=== PATIENT | male | born 1970 | race Caucasian/White ===

== ENCOUNTER 2023-11-26 05:24 | Emergency (ER) | payer OTHER, SELFPAY ==
[2023-11-26 05:28] VITALS: BP 95/55
[2023-11-26 06:31] VITALS: BP 110/68; BMI 36.2
--- NOTE | 2023-11-26 06:33 | EDRN ---
Pt says he has been getting charley horses in his legs x 4 weeks. He got back from [place] 11/15 and his stomach 'hasn't been right since.' Pt has had nausea. Pt notes increased soft bowel movements daily - no diarrhea. Pt woke with a charley horse
and says he 'stretched it out' then developed 'bubbles in the back of my head and I got dizzy.' Pt says he has never had this sensation in his head. Dizziness lasted about 5-10 minutes and has improved 'a lot.' Pt still feels discomfort posterior
head. Pt does not know if lights bother his eyes. Pt denies fever/chills/cough, cp, sob, abd pain, urinary symptoms, vomiting, diarrhea/constipation.
[2023-11-26 07:04] VITALS: BP 109/63
--- NOTE | 2023-11-26 07:23 | ED.GENMED ---
History of Present Illness
General
Chief Complaint: Musculo-Skeletal Complaint
Source: patient
Exam Limitations: none
Time Seen by Provider: 11/26/23 07:09
Nursing documentation reviewed up to this point in time: agreed with
Travel History
Have you had any contact with someone who has COVID-19?: No
Do you have any symptoms of coronavirus? Fever > 100 degrees, chills, cough, shortness of breath, sore throat, loss of taste or smell, muscle aches, or headache?: No
History of Present Illness
History of Present Illness:
53-year-old male presents to the ER for evaluation. Patient reports he has had intermittent 'Ryan horses' for the past 4 weeks now and woke up because of a' charley horse' in his right leg around 5:20 AM. He reports he jumped up and when he
straightened out his toes of his right leg he felt a sudden rushing sensation and weird sensation in the back of his head and felt very dizzy . He reports the dizziness lasted for about 5 to 10 minutes. He had no associated headache. He did not
feel like he was going to pass out he just felt dizzy. He was able to drive himself here to the ER. Currently he has no symptoms of head pain or dizziness. Pt reports he has been up very early every morning for the past several days because of his
job and has very sleep deprived.
He is not on blood thinners. He denied any visual changes associate with this. Denies any nausea vomiting. He reports he was in [place] 10 days ago and since then has had frequent bowel movements every day but not diarrhea. He has not documented
medical history but does not go to his family doctor routinely. There is no family history of DVT blood clots CVAs.
Past History
Past History
ED Past Medical History: Other (renal calc)
ED Past Surgical History: Appendectomy and Orthopedic (Left hand surgery)
Social History
Tobacco: Smoker (Occasional cigar)
Alcohol: None
Personal: Single
Living: with family
Employment: Employed
Review of Systems
Review of Systems
Allergies reviewed?: Yes
All Other Systems: ROS reviewed and negative except as documented in HPI and ROS
Constitutional: Reports no symptoms
EENT: Reports no symptoms
Respiratory: Reports no symptoms
Cardiac: Reports no symptoms
ABD/GI: Reports no symptoms
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
Skin: Reports no symptoms
Neurological: Reports other ('weird sensation to back of head ' prior to arrival associated with dizziness, quick episode of confusion ); Denies headache
Endocrine: Reports no symptoms
Hematologic/Lymphatic: Reports no symptoms
Psychiatric: Reports no symptoms
Phy Exam
General Physical Exam
General Presentation: no apparent distress
General age: appears stated age
General Skin: warm and dry
General Habitus: normal
General Mental: alert
General Hydration: appears well hydrated
Neurological Exam
Neurological Exam: alert, oriented x3, no motor deficits and no sensory deficits
[place] Coma Scale
Eye Opening: Spontaneous
Verbal Response: Oriented
Motor Response: Obeys Commands
GCS Total Score: 15
Cerebellar
Cerebellar Function: normal finger to nose
Musculoskeletal Exam
Musculoskeletal Exam: full ROM
Skin Exam
Skin Exam: normal color and warm/dry
Psychiatric Exam
Psychiatric Exam: normal mood/affect
Course
Orders/Labs/Results
Orders:
Orders
11/26/23 07:27
IV Insert/Care/Rem.- Treatment PRN
0.9% Sodium Chloride 1000 ml [Nss] 1,000 ml IV BOLUS
11/26/23 07:30
Venous Doppler Lwr Ext Rt [US Periph Venous LOWER Ext RT] Urgent
Comment:
Reason For Exam: pain
11/26/23 07:31
CPK [Creatine Phosphokinase] Urgent
Complete Blood Count/With Diff Urgent
Comprehensive Metabolic Panel Urgent
Abnormal Lab Results
11/26/23
07:31
WBC 12.9 H 10^3/uL
(4.8-10.8)
Abs Immat Gran (auto) 0.1 H 10^3/uL
(0-0.05)
Absolute Neuts (auto) 10.3 H 10^3/uL
(1.4-6.5)
Absolute Monos (auto) 1.0 H 10^3/uL
(0.1-0.6)
Neutrophils % 80.2 H %
(42.2-75.2)
Lymphocytes % 10.8 L %
(20.5-51.1)
Glucose 116 H mg/dl
(70-99)
Creatine Kinase 219 H U/L
(55-170)
11/26/23 07:31
11/26/23 07:31
Vital Signs
Initial and Last Documented VS:
Initial Vital Signs
Temp Pulse Resp BP Pulse Ox
98.2 F 60 16 95/55 92
11/26/23 05:28 11/26/23 05:28 11/26/23 05:28 11/26/23 05:28 11/26/23 05:28
Last Documented Vital Signs
Temp Pulse Resp BP Pulse Ox
98.2 F 65 13 125/69 92
11/26/23 05:28 11/26/23 10:00 11/26/23 09:00 11/26/23 10:00 11/26/23 10:00
Director Writing consulted with Physician
Director Writing consulted with physician?: Yes
Name of Physician Consulted: DR Fatima
MDM/Problems Addressed
MDM/Problems Addressed:
Patient is a 53-year-old male who presented with complaints of a charley horse that woke him up in the middle the night when he stood up he felt very dizzy had a weird sensation the back of his head. Those symptoms resolved prior to arrival. He
had no complaints of dizziness lightheadedness while here in the ER. Symptoms are likely vasovagal from pain. Patient presented here awake alert no acute distress. He did recent have travel to [place] though there was no swelling ultrasound was
done of right leg which was negative. He denies any fevers his white count is minimally elevated however no recent infectious symptoms. Patient with normal chemistries negative ultrasound.
patient has been asymptomatic here in the ER ; in no acute distress ambulatory and asymptomatic.
case reviewed with Caty aldana d/c home. PT feels well enough to go home.
*Radiology
Radiology exam reviewed: radiology read reviewed
*Critical Care Note
Total Time (30-74mins, 75-104mins- exclusive of procedures): Not Applicable
ED Attending Note
-
Portions of this chart may have been created with voice recognition software.� Occasional wrong word or��sound alike� substitutions may have occurred due to the inherent limitations of voice recognition software.
Discharge Plan
Departure
Patient Disposition: Home (Routine Discharge)
Date of Disposition: 11/26/23
Time of Disposition: 10:36
Patient with high blood pressure during this ER visit?: No
Condition: Fair
Covid-19: Not Applicable
Discharge Problem:
Acute leg pain
Instructions: Muscle and Bone Pain (DC)
Prescriptions:
No Action
No Current Medications
0
Referrals:
Joe Rodríguez MD [Family Provider] -
Activity Restrictions/Additional Instructions:
Follow-up with family doctor in the next several days for reevaluation.
return if any worsening of symptoms.
Interventions
Interventions:
*Risk Screen - Suicide Last Done: 11/26/23 05:28
*General Assessment Last Done: 11/26/23 05:28
*Neglect/Abuse Screening Last Done: 11/26/23 05:28
ED- Fall Risk Assessment Last Done: 11/26/23 05:28
*ED COVID-19 Vaccine History Last Done: 11/26/23 05:28
ED-Musculoskeletal Assessment Last Done: 11/26/23 09:20
Discharge Date and Time
Print Language: YAKUT
[2023-11-26 07:41] LABS: % Basophils 0.2 % (0-2); % Eosinophils 0.5 % (0-6); % Immature Granulocytes 0.5 % (0-0.5); % Lymphocytes 10.8 % (20.5-51.1); % Monocytes 7.8 % (1.7-9.3); % Neutrophils 80.2 % (42.2-75.2); Absolute Eosinophils 0.1 10^3/uL (0-0.7); Absolute Immature Granulocytes 0.1 10^3/uL (0-0.05); Absolute Lymphocytes 1.4 10^3/uL (1.2-3.4); Absolute Neutrophils 10.3 10^3/uL (1.4-6.5); Hematocrit 42.6 % (39.0-52.0); Hemoglobin 15.4 g/dL (13.0-18.0); Mean Corp Hgb Conc. 36.2 g/dL (33.0-37.0); Mean Corpuscular Hgb 29.4 pg (27.0-31.0); Mean Corpuscular Volume 81.3 fL (80.0-94.0); Mean Platelet Volume 10.2 fL (7.4-10.4); Nucleated Red Blood Cells % 0 % (-); Platelet Count 241 10^3/uL (130-400); Red Blood Cell Count 5.24 10^6/uL (4.70-6.10); Red Cell Dist. Width 12.5 % (11.5-14.5); White Blood Cell Count 12.9 10^3/uL (4.8-10.8)
[2023-11-26] MEDS: NSS 1000 IV (07:44)
[2023-11-26 07:54] LABS: ALT (SGPT) 44 U/L (0-50); AST (SGOT) 28 U/L (17-59); Albumin 4.5 g/dl (3.5-5.0); Alkaline Phosphatase 59 U/L (38-126); Blood Urea Nitrogen 19 mg/dl (9-20); Carbon Dioxide 24 mmol/L (22-30); Chloride 105 mmol/L (98-107); Creatine Phosphokinase 219 U/L (55-170); Estimated Creatinine Clearance > 125 ml/min; Glucose 116 mg/dl (70-99); Sodium 136 mmol/L (135-145); Total Bilirubin 0.7 mg/dl (0.2-1.3); eGFR > 60.00
[2023-11-26 09:00] VITALS: BP 132/88
[2023-11-26 10:00] VITALS: BP 125/69
== END 2023-11-26 10:43 | disposition home or self-care (01) ==
LOC: EMR 05:24
PROVIDERS: Nurse Practitioner; EMERGENCY PHYSICIAN Emergency Medicine; FAMILY PHYSICIAN Radiology Vascular & Interventional Radiology
DX: M79.604 Pain in right leg (principal); R42 Dizziness and giddiness; R41.0 Disorientation, unspecified; F17.290 Nicotine dependence, other tobacco product, uncomplicated; K57.92 Diverticulitis of intestine, part unspecified, without perforation or abscess without bleeding; Z87.442 Personal history of urinary calculi
CPT/HCPCS: 99284; 96360; 80053; 82550; 85025; 93971